=== PATIENT | male | born 2005 | race Two or more races ===

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

== ENCOUNTER 2025-01-08 21:43 | Emergency (ER) | payer OTHER ==
[2025-01-08 21:58] VITALS: BP 114/65; PULSE 68; RESP 16; TEMP 98.4; BMI 18.7
== END 2025-01-08 23:17 | disposition home or self-care (01) ==
LOC: FER 21:43
DX: R07.2 Precordial pain (principal)
CPT/HCPCS: 36415; 84484; 93005; 99284-25